=== PATIENT | female | born 1970 | race American Indian/Alaskan Native ===

== ENCOUNTER 2021-12-01 04:24 | Emergency (ER) | payer MEDICAID ==
[2021-12-01] MEDS ORDERED: PROMETHAZINE 25 MG TAB PO ONE (07:31)
[2021-12-01 07:38] VITALS: BP 172/106
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
--- NOTE | 2021-12-01 09:01 | XRay Report ---
Right ankle, 3 views HISTORY: Right ankle pain and swelling COMPARISON: FINDINGS: No acute fracture or malalignment. Ankle mortise is symmetric. There is moderate osteoarthr itis of the tibiotalar joint. Os trigonum versus small osteochondral bodies in the posterior joint. T here is diffuse soft tissue swelling, greatest at the medial ankle. No soft tissue gas. No aggressive cortical destructive changes. IMPRESSION: Soft tissue swelling of the ankle, greatest medially. No acute osseous findings. Chronic degenerative changes detailed above. Signer Name: Francesco Del Valle MD Signed: 12/01/2021 8:57 AM Workstation Name: [id number]
[2021-12-01] MEDS ORDERED: ACETAMINOPHEN 500 MG TAB PO ONE (09:06)
--- NOTE | 2021-12-01 09:16 | XRay Report ---
XR chest 1V ap INDICATION / CLINICAL INFORMATION: SOB. COMPARISON: 09/24/2014. FINDINGS: SUPPORT DEVICES: None. HEART /PULMONARY VASCULATURE: No significant abnormality. LUNGS / PLEURA: Lung volumes are diminished with bronchovascular crowding. Streaky opacities within t he lung bases likely reflect volume loss. No sizable pleural effusion. No pneumothorax. IMPRESSION: Low lung volumes with streaky bibasilar opacities, favored to reflect volume loss. Otherwise, no acut e findings. Signer Name: Francesco Del Valle MD Signed: 12/01/2021 9:11 AM Workstation Name: [id number]
== END 2021-12-01 11:00 | disposition left against medical advice (07) ==
LOC: ED 04:24
DX: S99.911A Unspecified injury of right ankle, initial encounter (principal); T78.40XA Allergy, unspecified, initial encounter; R06.02 Shortness of breath; X58.XXXA Exposure to other specified factors, initial encounter; Y93.89 Activity, other specified; Y92.89 Other specified places as the place of occurrence of the external cause; Y99.8 Other external cause status
CPT/HCPCS: 71045; 73610; 99284; Q0169